=== PATIENT | female | born 1935 | race Caucasian/White ===

== ENCOUNTER 2019-05-12 06:25 | Emergency (ER) | payer MEDICARE, OTHER, MEDICAID, SELFPAY ==
[2019-05-12 06:32] VITALS: BP 140/70; PULSE 98; RESP 24; TEMP 37.1; O2SAT 97; BMI 23.8
--- NOTE | 2019-05-12 06:32 | ED_ITS ---
Documented by User: Jose Juan Bae DO 05/12/19 07:10 HPI - SOB/Dyspnea General: Chief Complaint: Shortness of Breath/Dyspnea Stated Complaint: ASPIRATION Time Seen by Provider: 05/12/19 06:29 History of Present Illness: MD elicited complaint: shortness of breath Pertinent past history: pneumonia Onset (ago): day(s) Context: choking/aspiration Timing: progressively worsening Severity: moderate Exacerbating factors: nothing Relieving factors: nothing Associated symptoms: Reports chest congestion and vomiting Review of Systems General: Reports: ROS unobtainable due to medical condition and ROS unobtainable due to mental status Resp: Reports: chest congestion GI: Reports: vomiting PFSH ED PFSH: Medical History (Updated 05/13/19 @ 14:24 by Herb Kauffman DO) Dementia Lacunar infarction Physical Exam Const: COMMON NORMALS: alert GENERAL APPEARANCE: well developed ORIENTATION/CONSCIOUSNESS: not oriented to person, not oriented to place and not oriented to time HENMT: COMMON NORMALS: normocephalic, external ears normal and external nose normal HEAD & SCALP: normocephalic NOSE: external nose normal and no nasal discharge EXTERNAL EAR: Yes external ears normal Eye: COMMON NORMALS: PERRL, EOMs intact bilaterally and conjunctivae normal EYELID: eyelids normal CONJUNCTIVA: Yes conjunctivae normal PUPIL: Yes PERRL Neck/C-Spine: GENERAL: No tracheal deviation Chest: COMMONS NORMALS: inspection of chest normal CHEST: No tenderness Resp: EFFORT & INSPECTION: Yes tachypneic, No respiratory distress, No retractions, No uses accessory muscles and No tracheal deviation AUSCULTATION: no rhonchi, no wheezes and diminished lung sounds Cardio: COMMON NORMALS: regular rate and regular rhythm RATE: regular rate RHYTHM: regular rhythm HEART SOUNDS: no murmurs PERIPHERAL PULSES: radial pulses present GI: INSPECTION: No abdominal distension AUSCULTATION: No hyperactive bowel sounds and No hypoactive bowel sounds PALPATION: No guarding and No rigid PERCUSSION: no dullness to percussion and no tympanic to percussion Neuro: SENSORIUM/ORIENTATION: Yes alert, No oriented to person, No oriented to place and No oriented to time Skin: COMMON NORMALS: no rashes or lesions noted GENERAL SKIN EXAM: no rashes or lesions noted Course Vital Signs: Vital signs: Vital Signs Temperature 98.8 F 05/12/19 06:32 Pulse Rate 87 05/12/19 08:12 Respiratory Rate 16 05/12/19 08:12 Blood Pressure 132/66 05/12/19 08:12 Pulse Oximetry 95 05/12/19 08:12 MDM - SOB/Dyspnea MDM Narrative: Medical decision making narrative: This patient will be checked out to Dr. Kauffman at shift change. Lab Data: Labs: Lab Results 05/12/19 05/12/19 05/12/19 Range/Units 06:35 06:35 07:19 WBC 15.5 H (4.0-10.0) 10^3/ uL RBC 4.43 (4.1-5.3) 10^6/u L Hgb 12.9 (11.5-15.3) g/dL Hct 41.1 (37.0-47.0) % MCV 92.8 (81-99) fL MCH 29.1 (28.0-34.0) pg MCHC 31.4 (30.0-36.0) g/dL RDW 13.2 (12.1-15.1) % Plt Count 363 (130-400) 10^3/c mm MPV 10.6 H (7.4-10.4) fL Neut % (Auto) 83.6 % Lymph % (Auto) 5.7 % [place] % (Auto) 10.0 % Eos % (Auto) 0.1 % Baso % (Auto) 0.3 % Neut # (Auto) 13.0 H (1.8-7.7) 10^3/u L Lymph # (Auto) 0.9 (0.8-4.8) 10^3/u L [place] # (Auto) 1.6 H (0.2-0.9) 10^3/u L Eos # (Auto) 0.0 (0.0-0.8) 10^3/u L Baso # (Auto) 0.0 (0.0-0.1) 10^3/u L Nucleated RBC % (a uto) 0 % Nucleated RBCs # 0.0 /100WBC Specimen Type Sample Site ABG pH (7.35-7.45) ABG pCO2 (35-45) mmHg ABG pO2 (80.0-100.0) mmH g ABG HCO3 (22-26) mmol/L ABG Base Excess (-2.0-2.0) mmol/ L Otilio Test Hematocrit (37-47) % Hgb O2 Saturation (95-100) % Carboxyhemoglobin (0.4-20.1) %THgb Methemoglobin (0.4-1.5) % Total Hemoglobin (12-16) g/dL O2 Delivery Device FiO2 % Van Driver Helper ID Sodium 138 (136-145) mmol/L Potassium 4.6 (3.5-5.1) mmol/L Chloride 100 (98-107) mmol/L Carbon Dioxide 23 (22-29) mmol/L Anion Gap 19.6 H (5-19) BUN 25 H (8-23) mg/dL Creatinine 1.4 H (0.5-0.9) mg/dL Glucose 132 H (65-115) mg/dL Calculated Osmolal ity 285 (285-295) mOsm/k g Lactate 1.3 (0.5-2.2) mmol/L Calcium 9.2 (8.5-10.5) mg/dL Total Bilirubin 0.7 (0.15-1.2) mg/dL AST 21 (0-32) U/L ALT 12 (0-33) U/L Alkaline Phosphata se 104 (35-105) IU/L Total Protein 6.8 (6.6-8.7) g/dL Albumin 3.8 (3.5-5.2) g/dL Globulin 3.0 (1.3-4.6) g/dL 05/12/19 Range/Units 07:20 WBC (4.0-10.0) 10^3/ uL RBC (4.1-5.3) 10^6/u L Hgb (11.5-15.3) g/dL Hct (37.0-47.0) % MCV (81-99) fL MCH (28.0-34.0) pg MCHC (30.0-36.0) g/dL RDW (12.1-15.1) % Plt Count (130-400) 10^3/c mm MPV (7.4-10.4) fL Neut % (Auto) % Lymph % (Auto) % [place] % (Auto) % Eos % (Auto) % Baso % (Auto) % Neut # (Auto) (1.8-7.7) 10^3/u L Lymph # (Auto) (0.8-4.8) 10^3/u L [place] # (Auto) (0.2-0.9) 10^3/u L Eos # (Auto) (0.0-0.8) 10^3/u L Baso # (Auto) (0.0-0.1) 10^3/u L Nucleated RBC % (a uto) % Nucleated RBCs # /100WBC Specimen Type Arterial Sample Site Radial, left ABG pH 7.46 H (7.35-7.45) ABG pCO2 37.8 (35-45) mmHg ABG pO2 58.7 L (80.0-100.0) mmH g ABG HCO3 26.8 H (22-26) mmol/L ABG Base Excess 2.9 H (-2.0-2.0) mmol/ L Otilio Test Pos Hematocrit 40.3 (37-47) % Hgb O2 Saturation 89.9 L (95-100) % Carboxyhemoglobin 1.0 (0.4-20.1) %THgb Methemoglobin 0.9 (0.4-1.5) % Total Hemoglobin 13.1 (12-16) g/dL O2 Delivery Device Room air FiO2 21.0 % Van Driver Helper ID amh Sodium (136-145) mmol/L Potassium (3.5-5.1) mmol/L Chloride (98-107) mmol/L Carbon Dioxide (22-29) mmol/L Anion Gap (5-19) BUN (8-23) mg/dL Creatinine (0.5-0.9) mg/dL Glucose (65-115) mg/dL Calculated Osmolal ity (285-295) mOsm/k g Lactate (0.5-2.2) mmol/L Calcium (8.5-10.5) mg/dL Total Bilirubin (0.15-1.2) mg/dL AST (0-32) U/L ALT (0-33) U/L Alkaline Phosphata se (35-105) IU/L Total Protein (6.6-8.7) g/dL Albumin (3.5-5.2) g/dL Globulin (1.3-4.6) g/dL Discharge Plan Discharge Patient Disposition: Home, Self-Care Clinical Impression: Vomiting Aspiration pneumonia Qualifiers: Aspiration pneumonia type: due to gastric secretions Condition: Stable Prescriptions: New clindamycin HCl 300 mg capsule 300 mg PO Q6H 7 Days Qty: 28 RF: 0 No Action albuterol sulfate 2.5 mg /3 mL (0.083 %) Solution For Nebulization 2.5 mg INHALATION Q6H RF: 0 Artificial Tears (polyvin alc) 1.4 % Drops 1 drp OPHTHALMIC (EYE) 5XD PRN (Reason: Dry Eye(S)) RF: 0 Zofran 4 mg Tablet 4 mg PO Q6H PRN (Reason: Nausea) RF: 0 Tylenol 8 Hour 650 mg Tablet Extended Release 650 mg PO Q8H RF: 0 Celexa 20 mg Tablet 20 mg PO DAILY RF: 0 Milk of Magnesia 400 mg/5 mL Suspension 30 ml PO DAILY PRN (Reason: Constipation) RF: 0 Dulcolax (bisacodyl) 10 mg Suppository 10 mg IL DAILY PRN (Reason: Constipation) RF: 0 Fleet Enema 19-7 gram/118 mL Enema 118 ml IL DAILY PRN (Reason: Constipation) RF: 0 Risperdal 0.5 mg Tablet 0.5 mg PO DAILY RF: 0 Discharge Orders: Discharge Order (Routine); Ordered 05/12/19 Ordered By: Herb Kauffman Referrals: Pablo Mcdowell DO [Primary Care Provider] - Discharge Diet: Usual diet Discharge Activity: Increase activity as tolerated Activity Restrictions/Additional Instructions: Return if there are further problems. Interventions: ED Discharge Assessment Last Done: 05/12/19 08:12 Discharge Date/Time: 05/12/19 10:43 Sign Out Sign Out Data: Patient Sign Out occurred on 05/12/19 at 07:17. Patient's care was discussed, and care was transferred from to Herb Kauffman DO. Coding Level of Care Code ED Greaser Operator for Chg Fwd Exam Comprehensive Documented by User: Herb Kauffman DO 05/13/19 14:25 HPI - SOB/Dyspnea General: Chief Complaint: Shortness of Breath/Dyspnea Stated Complaint: ASPIRATION Time Seen by Provider: 05/12/19 06:29 History of Present Illness: HPI Narrative: 83-year-old female with moderate dementia she is a resident of a local halfway. She was sent in via EMS after an episode of vomiting at the halfway. I assumed her care at change of shift from Dr. Bae. She had been reported to vomit at the halfway and they are concerned she may have aspirated. Review of her labs shows mildly elevated white count but her chest x-ray is normal she is satting well on room air breathing comfortably. CT of the head was negative chest x-ray was unremarkable. Review of Systems General: Reports: ROS unobtainable due to mental status (Nonverbal at her baseline per halfway report) PFSH ED PFSH: Medical History (Updated 05/13/19 @ 14:24 by Herb Kauffman DO) Dementia Lacunar infarction Physical Exam Eye: COMMON NORMALS: PERRL, EOMs intact bilaterally, conjunctivae normal and no scleral icterus CONJUNCTIVA: Yes conjunctivae normal PUPIL: Yes PERRL Neck/C-Spine: COMMON NORMALS: full ROM, no lymphadenopathy, supple, no meningeal signs and thyroid normal THYROID: thyroid normal and asymmetrical Lymph: LYMPHATIC: no lymphadenopathy noted Resp: COMMON NORMALS: normal respiratory effort, no retractions, no use of accessory muscles and clear to auscultation bilaterally AUSCULTATION: clear to auscultation bilaterally Cardio: COMMON NORMALS: regular rate and regular rhythm RATE: regular rate RHYTHM: regular rhythm HEART SOUNDS: no murmurs GI: COMMON NORMALS: normal to inspection, nondistended, normoactive bowel sounds, soft to palpation and no hepatosplenomegaly PALPATION: Yes soft and Yes no hepatosplenomegaly : COMMON NORMALS: Yes no CVA tenderness BLADDER/KIDNEY EXAM: Yes no CVA tenderness Back/Pelvis: COMMON NORMALS: no CVA tenderness LUMBAR SPINE/LOWER BACK: Yes normal to inspection Extremity: COMMON NORMALS: no clubbing, cyanosis or edema, no calf tenderness and no pedal edema Neuro: MENINGEAL SIGNS: Yes no meningeal signs Skin: COMMON NORMALS: no rashes or lesions noted and skin turgor normal GENERAL SKIN EXAM: no rashes or lesions noted and turgor normal Course ED course: Work-up done in the ER shows her to be stable with no indication for admission. I am concerned though given the history about her developing a aspiration pneumonia so we will start her on the clindamycin. CT of the head shows chronic changes but otherwise nothing new chest x-ray does not show any acute infiltrates. Her white count is slightly elevated and she does show evidence of mild dehydration she was given IV fluids here. At this point her vital signs are stable she is satting normally on room air. We will go ahead and start her on oral clindamycin and discharge her back to the halfway. Vital Signs: Vital signs: Vital Signs Temperature 98.8 F 05/12/19 06:32 Pulse Rate 87 05/12/19 08:12 Respiratory Rate 16 05/12/19 08:12 Blood Pressure 132/66 05/12/19 08:12 Pulse Oximetry 95 05/12/19 08:12 MDM - SOB/Dyspnea Lab Data: Labs: Lab Results 05/12/19 05/12/19 05/12/19 Range/Units 06:35 06:35 07:19 WBC 15.5 H (4.0-10.0) 10^3/ uL RBC 4.43 (4.1-5.3) 10^6/u L Hgb 12.9 (11.5-15.3) g/dL Hct 41.1 (37.0-47.0) % MCV 92.8 (81-99) fL MCH 29.1 (28.0-34.0) pg MCHC 31.4 (30.0-36.0) g/dL RDW 13.2 (12.1-15.1) % Plt Count 363 (130-400) 10^3/c mm MPV 10.6 H (7.4-10.4) fL Neut % (Auto) 83.6 % Lymph % (Auto) 5.7 % [place] % (Auto) 10.0 % Eos % (Auto) 0.1 % Baso % (Auto) 0.3 % Neut # (Auto) 13.0 H (1.8-7.7) 10^3/u L Lymph # (Auto) 0.9 (0.8-4.8) 10^3/u L [place] # (Auto) 1.6 H (0.2-0.9) 10^3/u L Eos # (Auto) 0.0 (0.0-0.8) 10^3/u L Baso # (Auto) 0.0 (0.0-0.1) 10^3/u L Nucleated RBC % (a uto) 0 % Nucleated RBCs # 0.0 /100WBC Specimen Type Sample Site ABG pH (7.35-7.45) ABG pCO2 (35-45) mmHg ABG pO2 (80.0-100.0) mmH g ABG HCO3 (22-26) mmol/L ABG Base Excess (-2.0-2.0) mmol/ L Otilio Test Hematocrit (37-47) % Hgb O2 Saturation (95-100) % Carboxyhemoglobin (0.4-20.1) %THgb Methemoglobin (0.4-1.5) % Total Hemoglobin (12-16) g/dL O2 Delivery Device FiO2 % Van Driver Helper ID Sodium 138 (136-145) mmol/L Potassium 4.6 (3.5-5.1) mmol/L Chloride 100 (98-107) mmol/L Carbon Dioxide 23 (22-29) mmol/L Anion Gap 19.6 H (5-19) BUN 25 H (8-23) mg/dL Creatinine 1.4 H (0.5-0.9) mg/dL Glucose 132 H (65-115) mg/dL Calculated Osmolal ity 285 (285-295) mOsm/k g Lactate 1.3 (0.5-2.2) mmol/L Calcium 9.2 (8.5-10.5) mg/dL Total Bilirubin 0.7 (0.15-1.2) mg/dL AST 21 (0-32) U/L ALT 12 (0-33) U/L Alkaline Phosphata se 104 (35-105) IU/L Total Protein 6.8 (6.6-8.7) g/dL Albumin 3.8 (3.5-5.2) g/dL Globulin 3.0 (1.3-4.6) g/dL 05/12/19 Range/Units 07:20 WBC (4.0-10.0) 10^3/ uL RBC (4.1-5.3) 10^6/u L Hgb (11.5-15.3) g/dL Hct (37.0-47.0) % MCV (81-99) fL MCH (28.0-34.0) pg MCHC (30.0-36.0) g/dL RDW (12.1-15.1) % Plt Count (130-400) 10^3/c mm MPV (7.4-10.4) fL Neut % (Auto) % Lymph % (Auto) % [place] % (Auto) % Eos % (Auto) % Baso % (Auto) % Neut # (Auto) (1.8-7.7) 10^3/u L Lymph # (Auto) (0.8-4.8) 10^3/u L [place] # (Auto) (0.2-0.9) 10^3/u L Eos # (Auto) (0.0-0.8) 10^3/u L Baso # (Auto) (0.0-0.1) 10^3/u L Nucleated RBC % (a uto) % Nucleated RBCs # /100WBC Specimen Type Arterial Sample Site Radial, left ABG pH 7.46 H (7.35-7.45) ABG pCO2 37.8 (35-45) mmHg ABG pO2 58.7 L (80.0-100.0) mmH g ABG HCO3 26.8 H (22-26) mmol/L ABG Base Excess 2.9 H (-2.0-2.0) mmol/ L Otilio Test Pos Hematocrit 40.3 (37-47) % Hgb O2 Saturation 89.9 L (95-100) % Carboxyhemoglobin 1.0 (0.4-20.1) %THgb Methemoglobin 0.9 (0.4-1.5) % Total Hemoglobin 13.1 (12-16) g/dL O2 Delivery Device Room air FiO2 21.0 % Van Driver Helper ID amh Sodium (136-145) mmol/L Potassium (3.5-5.1) mmol/L Chloride (98-107) mmol/L Carbon Dioxide (22-29) mmol/L Anion Gap (5-19) BUN (8-23) mg/dL Creatinine (0.5-0.9) mg/dL Glucose (65-115) mg/dL Calculated Osmolal ity (285-295) mOsm/k g Lactate (0.5-2.2) mmol/L Calcium (8.5-10.5) mg/dL Total Bilirubin (0.15-1.2) mg/dL AST (0-32) U/L ALT (0-33) U/L Alkaline Phosphata se (35-105) IU/L Total Protein (6.6-8.7) g/dL Albumin (3.5-5.2) g/dL Globulin (1.3-4.6) g/dL Discharge Plan Discharge Patient Disposition: Home, Self-Care Clinical Impression: Vomiting Aspiration pneumonia Qualifiers: Aspiration pneumonia type: due to gastric secretions Condition: Stable Prescriptions: New clindamycin HCl 300 mg capsule 300 mg PO Q6H 7 Days Qty: 28 RF: 0 No Action albuterol sulfate 2.5 mg /3 mL (0.083 %) Solution For Nebulization 2.5 mg INHALATION Q6H RF: 0 Artificial Tears (polyvin alc) 1.4 % Drops 1 drp OPHTHALMIC (EYE) 5XD PRN (Reason: Dry Eye(S)) RF: 0 Zofran 4 mg Tablet 4 mg PO Q6H PRN (Reason: Nausea) RF: 0 Tylenol 8 Hour 650 mg Tablet Extended Release 650 mg PO Q8H RF: 0 Celexa 20 mg Tablet 20 mg PO DAILY RF: 0 Milk of Magnesia 400 mg/5 mL Suspension 30 ml PO DAILY PRN (Reason: Constipation) RF: 0 Dulcolax (bisacodyl) 10 mg Suppository 10 mg IL DAILY PRN (Reason: Constipation) RF: 0 Fleet Enema 19-7 gram/118 mL Enema 118 ml IL DAILY PRN (Reason: Constipation) RF: 0 Risperdal 0.5 mg Tablet 0.5 mg PO DAILY RF: 0 Discharge Orders: Discharge Order (Routine); Ordered 05/12/19 Ordered By: Herb Kauffman Referrals: Pablo Mcdowell DO [Primary Care Provider] - Discharge Diet: Usual diet Discharge Activity: Increase activity as tolerated Activity Restrictions/Additional Instructions: Return if there are further problems. Interventions: ED Discharge Assessment Last Done: 05/12/19 08:12 Discharge Date/Time: 05/12/19 10:43 Sign Out Sign Out Data: Patient Sign Out occurred on 05/12/19 at 07:17. Patient's care was discussed, and care was transferred from to Herb Kauffman DO. Coding Level of Care Code ED Greaser Operator for Aashish Fwd Exam Comprehensive
--- NOTE | 2019-05-12 06:46 | XRR_ITS ---
PROCEDURE INFORMATION: Exam: XR Chest, 1 View Exam date and time: 05/12/2019 7:06 AM Age: 83 years old Clinical indication: Shortness of breath; Additional info: SOB TECHNIQUE: Imaging protocol: XR of the chest Views: 1 view. COMPARISON: No relevant prior studies available. FINDINGS: Heart size within normal limits. Mild atelectasis at bilateral lung bases. No airspace consolidation identified. Tiny dense nodule in the right lung apex. Small dense nodule in the left upper lung. These are consistent with granulomata. Pulmonary vasculature within normal limits. No visible pneumothorax or pleural effusion. XR/XR chest 1V portable [id number] IMPRESSION: 1. No radiographic findings of acute cardiopulmonary disease.
--- NOTE | 2019-05-12 06:48 | CTR_ITS ---
PROCEDURE INFORMATION: Exam: CT Head Without Contrast Exam date and time: 05/12/2019 6:49 AM Age: 83 years old Clinical indication: Altered mental status/memory loss TECHNIQUE: Imaging protocol: Computed tomography of the head without contrast. Total DLP: 842.4 mGy-cm Radiation optimization: All CT scans at this facility use at least one of these dose optimization techniques: automated exposure control; mA and/or kV adjustment per patient size (includes targeted exams where dose is matched to clinical indication); or iterative reconstruction. COMPARISON: CT head wo con* [id number] 02/27/2018 5:53 PM FINDINGS: The ventricles and sulci are moderately and diffusely prominent, compatible with global brain volume loss. There is extensive hypodensity of the periventricular white matter. This is nonspecific, but a likely cause is small vessel ischemic disease. There is a 0.8 cm hypodensity near the left caudate head, consistent with a chronic lacunar infarct. No abnormal intra-axial or extra-axial fluid collections are identified. There is no midline shift. No evidence of intracranial hemorrhage. The visualized bones are unremarkable. CT/CT head wo con* [id number] IMPRESSION: 1. No acute intracranial process identified. Radiation Dose CTDIVOL = (mGy): DLP = 842.4 (mGy-cm)
[2019-05-12 07:11] LABS: Basophils % 0.3 %; Eosinophils % 0.1 %; Hematocrit 41.1 % (37.0-47.0); Hemoglobin 12.9 g/dL (11.5-15.3); Lymphocytes # 0.9 10^3/uL (0.8-4.8); Lymphocytes % 5.7 %; Mean Corpuscular HGB Conc 31.4 g/dL (30.0-36.0); Mean Corpuscular Hemoglobin 29.1 pg (28.0-34.0); Mean Corpuscular Volume 92.8 fL (81-99); Mean Platelet Volume 10.6 fL (7.4-10.4); Monocytes # 1.6 10^3/uL (0.2-0.9); Neutrophils % 83.6 %; Nucleated Red Blood Cells % 0 %; Platelet Count 363 10^3/cmm (130-400); Red Blood Count 4.43 10^6/uL (4.1-5.3); Red Cell Distribution Width 13.2 % (12.1-15.1); White Blood Count 15.5 10^3/uL (4.0-10.0)
[2019-05-12 07:21] LABS: Alanine Aminotransferase 12 U/L (0-33); Albumin Level 3.8 g/dL (3.5-5.2); Alkaline Phosphatase 104 IU/L (35-105); Anion Gap 19.6 (5-19); Aspartate Amino Transferase 21 U/L (0-32); Blood Urea Nitrogen 25 mg/dL (8-23); Calcium 9.2 mg/dL (8.5-10.5); Carbon Dioxide 23 mmol/L (22-29); Chloride 100 mmol/L (98-107); Glucose 132 mg/dL (65-115); Osmolality Calculated 285 mOsm/kg (285-295); Potassium 4.6 mmol/L (3.5-5.1); Sodium 138 mmol/L (136-145); Total Bilirubin 0.7 mg/dL (0.15-1.2); Total Protein 6.8 g/dL (6.6-8.7)
[2019-05-12 07:31] LABS: ABG PCO2 37.8 mmHg (35-45); ABG PH Result 7.46 (7.35-7.45); Arterial Blood Gas Hematocrit 40.3 % (37-47); Base Excess ABG 2.9 mmol/L (-2.0-2.0); Blood Gas Allen Test Pos; Blood Gas Operator Identificat amh; Blood Gas Sample Site Radial, left; Blood Gas Sample Type Arterial; HCO3 ABG 26.8 mmol/L (22-26); HGB O2 Sat 89.9 % (95-100); Methemoglobin 0.9 % (0.4-1.5); Oxygen Device ROOM AIR; PO2 ABG 58.7 mmHg (80.0-100.0); Total Hemoglobin 13.1 g/dL (12-16)
[2019-05-12 07:43] LABS: Lactate (Lactic Acid level) 1.3 mmol/L (0.5-2.2)
[2019-05-12] MEDS: ondansetron 2 mg/ML SDV 2 mL 4 MG IVP (07:44)
[2019-05-12 07:46] VITALS: BP 144/58; PULSE 87; RESP 18; O2SAT 99
[2019-05-12 07:47] VITALS: O2SAT 97
[2019-05-12 08:12] VITALS: BP 132/66; PULSE 87; RESP 16; O2SAT 95
== END 2019-05-12 10:43 | disposition home or self-care (01) ==
PROVIDERS: Emergency Medicine; Emergency Provider Family Medicine; Family Provider Internal Medicine; PCP Internal Medicine
DX: J69.0 Pneumonitis due to inhalation of food and vomit (principal); F03.90 Unspecified dementia, unspecified severity, without behavioral disturbance, psychotic disturbance, mood disturbance, and anxiety
CPT/HCPCS: 12345; 36415; 36600; 70450; 71045; 80053; 82805; 83605; 85025; 87040; 96374; 96375; 99282; 99283; J2405

== ENCOUNTER 2019-06-30 06:53 | Inpatient (IN) | payer MEDICARE, OTHER, MEDICAID, SELFPAY ==
[2019-06-30] VITALS (15 sets, daily range): BP systolic 116–171; BP diastolic 50–81; PULSE 74–110; RESP 16–20; TEMP 36.7–37.1; O2SAT 93–100; BMI 24.5
--- NOTE | 2019-06-30 07:03 | XRR_ITS ---
PROCEDURE INFORMATION: Exam: XR Chest, 1 View Exam date and time: 06/30/2019 7:31 AM Age: 83 years old Clinical indication: Other: Edema TECHNIQUE: Imaging protocol: XR of the chest Views: 1 view. COMPARISON: CR XR chest 1V portable [id number] 05/12/2019 6:58 AM FINDINGS: Lungs: Interstitial prominence , chronic granulomatous disease, and left basilar airspace/pleural disease. Heart/Mediastinum: Cardiomegaly. Diaphragm: Asymmetric elevation of the right hemidiaphragm. Bones/joints: Osteopenia and degenerative change. XR/XR chest 1V portable [id number] IMPRESSION: Interstitial prominence , chronic granulomatous disease, and left basilar airspace/pleural disease.
--- NOTE | 2019-06-30 07:04 | ECG_ITS ---
Measurements Intervals [place] Rate: 103 P: 56 MT: 173 QRS: -3 QRSD: 70 T: 21 QT: 331 QTc: 434 SINUS TACHYCARDIA LOW QRS VOLTAGE IN PRECORDIAL LEADS [QRS DEFLECTION < 1.0 mV IN CHEST LEADS] No previous ECG available for comparison Electronically Signed On 06-30-2019 9:31:44 CDT by Keke Ge M.D. [email or web address]
--- NOTE | 2019-06-30 07:04 | W.ED.GENADLT ---
HPI - General Adult General: Chief complaint: General Medical Stated complaint: PEDAL EDEMA; HTN Time Seen by Provider: 06/30/19 06:54 Review of Systems General: Reports: ROS unobtainable due to mental status PFSH ED PFSH: Medical History Dementia Lacunar infarction Social History Smoking and tobacco status: unknown if ever smoked Physical Exam Narrative: EXAM NARRATIVE: senior care reports hypertension, tachycardia, and peripheral edema. Patient is nonverbal and is not able to contribute to history. She does not appear to be in any discomfort or any distress. HENMT: COMMON NORMALS: normocephalic HEAD & SCALP: normocephalic Neck/C-Spine: COMMON NORMALS: no meningeal signs and no JVD Resp: COMMON NORMALS: normal respiratory effort, No retractions, No use of accessory muscles and clear to auscultation bilaterally AUSCULTATION: clear to auscultation bilaterally Cardio: COMMON NORMALS: no JVD and regular rhythm JUGULAR VENOUS DISTENTION: no JVD RHYTHM: regular rhythm HEART SOUNDS: Murmur heart sound present GI: COMMON NORMALS: Normal to inspection, nondistended, normoactive bowel sounds present Extremity: GENERAL: Yes edema Neuro: MENINGEAL SIGNS: Yes no meningeal signs Course Vital Signs: Vital signs: Vital Signs Temperature 98.8 F 06/30/19 06:54 Pulse Rate 77 06/30/19 09:46 Respiratory Rate 16 06/30/19 09:46 Blood Pressure 155/69 06/30/19 09:46 Pulse Oximetry 95 06/30/19 09:46 [facility] - General Adult Lab Data: Labs: Lab Results 06/30/19 06/30/19 06/30/19 Range/Units 07:15 07:15 07:15 WBC 9.0 (4.0-10.0) 10^3/ uL RBC 4.38 (4.1-5.3) 10^6/u L Hgb 12.8 (11.5-15.3) g/dL Hct 41.1 (37.0-47.0) % MCV 93.8 (81-99) fL MCH 29.2 (28.0-34.0) pg MCHC 31.1 (30.0-36.0) g/dL RDW 13.2 (12.1-15.1) % Plt Count 344 (130-400) 10^3/c mm MPV 9.8 (7.4-10.4) fL Neut % (Auto) 82.3 % Lymph % (Auto) 6.7 % [place] % (Auto) 9.6 % Eos % (Auto) 0.8 % Baso % (Auto) 0.3 % Neut # (Auto) 7.4 (1.8-7.7) 10^3/u L Lymph # (Auto) 0.6 L (0.8-4.8) 10^3/u L [place] # (Auto) 0.9 (0.2-0.9) 10^3/u L Eos # (Auto) 0.1 (0.0-0.8) 10^3/u L Baso # (Auto) 0.0 (0.0-0.1) 10^3/u L Nucleated RBC % (a uto) 0 % Nucleated RBCs # 0.0 /100WBC Sodium 145 (136-145) mmol/L Potassium 4.7 (3.5-5.1) mmol/L Chloride 106 (98-107) mmol/L Carbon Dioxide 26 (22-29) mmol/L Anion Gap 17.7 (5-19) BUN 25 H (8-23) mg/dL Creatinine 1.2 H (0.5-0.9) mg/dL Glucose 136 H (65-115) mg/dL Calculated Osmolal ity 299 H (285-295) mOsm/k g Lactate 2.2 (0.5-2.2) mmol/L Calcium 8.8 (8.5-10.5) mg/dL Total Bilirubin 0.4 (0.15-1.2) mg/dL AST 20 (0-32) U/L ALT 15 (0-33) U/L Alkaline Phosphata se 85 (35-105) IU/L Troponin T Baselin e (0-10) ng/mL Troponin T 120 Min [place] (0-10) ng/mL Delta Troponin T (0-10) ABS# NT-Pro-B Natriuret Pep 235 (0-450) pg/mL Total Protein 7.0 (6.6-8.7) g/dL Albumin 4.1 (3.5-5.2) g/dL Globulin 2.9 (1.3-4.6) g/dL Urine Color (Yellow) Urine Appearance (CLEAR) Urine pH (5-7) Ur Specific Gravit y (1.005-1.030) Urine Protein (Negative) Urine Glucose (UA) (Normal) Urine Ketones (Negative) Urine Blood (Negative) Urine Nitrate (Negative) Urine Bilirubin (NEGATIVE) Urine Urobilinogen (Negative) mg/dL Ur Leukocyte Emmanuelle ase (Negative) Urine RBC (0-2) /hpf Urine WBC (0-5) /hpf Ur Squamous Epith Cells (0-5) Urine Bacteria (NONE) Urine Mucus 06/30/19 06/30/19 06/30/19 Range/Units 07:15 07:23 09:14 WBC (4.0-10.0) 10^3/ uL RBC (4.1-5.3) 10^6/u L Hgb (11.5-15.3) g/dL Hct (37.0-47.0) % MCV (81-99) fL MCH (28.0-34.0) pg MCHC (30.0-36.0) g/dL RDW (12.1-15.1) % Plt Count (130-400) 10^3/c mm MPV (7.4-10.4) fL Neut % (Auto) % Lymph % (Auto) % [place] % (Auto) % Eos % (Auto) % Baso % (Auto) % Neut # (Auto) (1.8-7.7) 10^3/u L Lymph # (Auto) (0.8-4.8) 10^3/u L [place] # (Auto) (0.2-0.9) 10^3/u L Eos # (Auto) (0.0-0.8) 10^3/u L Baso # (Auto) (0.0-0.1) 10^3/u L Nucleated RBC % (a uto) % Nucleated RBCs # /100WBC Sodium (136-145) mmol/L Potassium (3.5-5.1) mmol/L Chloride (98-107) mmol/L Carbon Dioxide (22-29) mmol/L Anion Gap (5-19) BUN (8-23) mg/dL Creatinine (0.5-0.9) mg/dL Glucose (65-115) mg/dL Calculated Osmolal ity (285-295) mOsm/k g Lactate (0.5-2.2) mmol/L Calcium (8.5-10.5) mg/dL Total Bilirubin (0.15-1.2) mg/dL AST (0-32) U/L ALT (0-33) U/L Alkaline Phosphata se (35-105) IU/L Troponin T Baselin e 58 H (0-10) ng/mL Troponin T 120 Min [place] 78.46 H (0-10) ng/mL Delta Troponin T 20.46 H* (0-10) ABS# NT-Pro-B Natriuret Pep (0-450) pg/mL Total Protein (6.6-8.7) g/dL Albumin (3.5-5.2) g/dL Globulin (1.3-4.6) g/dL Urine Color Yellow (Yellow) Urine Appearance Sl hazy (CLEAR) Urine pH 5 (5-7) Ur Specific Gravit y 1.020 (1.005-1.030) Urine Protein 1+ H (Negative) Urine Glucose (UA) Norm (Normal) Urine Ketones 1+ H (Negative) Urine Blood 2+ H (Negative) Urine Nitrate Positive H (Negative) Urine Bilirubin 1+ H (NEGATIVE) Urine Urobilinogen Norm (Negative) mg/dL Ur Leukocyte Emmanuelle ase 1+ H (Negative) Urine RBC None (0-2) /hpf Urine WBC 15-25 H (0-5) /hpf Ur Squamous Epith Cells 5-10 H (0-5) Urine Bacteria 3+ H (NONE) Urine Mucus 2+ Discharge Plan Discharge Patient Disposition: Admitted As Inpatient Clinical Impression: Non-ST elevation LA (NSTEMI), Peripheral edema Dementia Qualifiers: Dementia type: unspecified type Dementia behavioral disturbance: without behavioral disturbance Qualified Code(s): F03.90 - Unspecified dementia without behavioral disturbance Condition: Stable Referrals: Pablo Mcdowell DO [Primary Care Provider] - Coding Level of Care Code ED [facility] Fwd Exam Detailed
--- NOTE | 2019-06-30 07:27 | PC.NURSE ---
XR performed at bedside
[2019-06-30 07:31] LABS: Basophils % 0.3 %; Eosinophils # 0.1 10^3/uL (0.0-0.8); Eosinophils % 0.8 %; Hematocrit 41.1 % (37.0-47.0); Hemoglobin 12.8 g/dL (11.5-15.3); Lymphocytes # 0.6 10^3/uL (0.8-4.8); Lymphocytes % 6.7 %; Mean Corpuscular HGB Conc 31.1 g/dL (30.0-36.0); Mean Corpuscular Hemoglobin 29.2 pg (28.0-34.0); Mean Corpuscular Volume 93.8 fL (81-99); Mean Platelet Volume 9.8 fL (7.4-10.4); Monocytes # 0.9 10^3/uL (0.2-0.9); Monocytes % 9.6 %; Neutrophils # 7.4 10^3/uL (1.8-7.7); Neutrophils % 82.3 %; Nucleated Red Blood Cells % 0 %; Platelet Count 344 10^3/cmm (130-400); Red Blood Count 4.38 10^6/uL (4.1-5.3); Red Cell Distribution Width 13.2 % (12.1-15.1)
[2019-06-30 07:45] LABS: Lactate (Lactic Acid level) 2.2 mmol/L (0.5-2.2)
[2019-06-30 07:49] LABS: Troponin(5th) Baseline 58 ng/mL (0-10)
[2019-06-30 07:54] LABS: Blood Urine 2+ (Negative); Glucose Urine UA Norm (Normal); Ketones Urine 1+ (Negative); Nitrate Urine Positive (Negative); Protein Urine 1+ (Negative); Urine Appearance SL Hazy (CLEAR); Urine Color Yellow (Yellow); pH Urine 5 (5-7)
[2019-06-30 07:55] LABS: Add Urine Microscopic? YES; Bilirubin Urine 1+ (NEGATIVE); Leukocyte Esterase Urine 1+ (Negative); Urobilinogen Urine Norm (Negative)
[2019-06-30 07:56] LABS: Add Urine Culture? Yes; Bacteria Urine 3+; Mucus Urine 2+; WBC Urine 15-25 /hpf (0-5)
[2019-06-30 07:56] LABS: Alanine Aminotransferase 15 U/L (0-33); Albumin Level 4.1 g/dL (3.5-5.2); Alkaline Phosphatase 85 IU/L (35-105); Anion Gap 17.7 (5-19); Aspartate Amino Transferase 20 U/L (0-32); Blood Urea Nitrogen 25 mg/dL (8-23); Calcium 8.8 mg/dL (8.5-10.5); Carbon Dioxide 26 mmol/L (22-29); Chloride 106 mmol/L (98-107); Globulin 2.9 g/dL (1.3-4.6); Glucose 136 mg/dL (65-115); NT Pro B Type Natriuretic Pept 235 pg/mL (0-450); Osmolality Calculated 299 mOsm/kg (285-295); Potassium 4.7 mmol/L (3.5-5.1); Sodium 145 mmol/L (136-145); Total Bilirubin 0.4 mg/dL (0.15-1.2)
[2019-06-30] MEDS: cefTRIAXone 1,000 mg SDV 1000 MG IM (08:18)
[2019-06-30] MEDS: water for injection-sterile 10 ML (08:22)
--- NOTE | 2019-06-30 09:04 | ECG_ITS ---
Measurements Intervals [place] Rate: 85 P: 47 WA: 173 QRS: -4 QRSD: 68 T: 10 QT: 358 QTc: 427 SINUS RHYTHM LOW QRS VOLTAGE IN PRECORDIAL LEADS [QRS DEFLECTION < 1.0 mV IN CHEST LEADS] Compared to ECG 06/30/2019 07:18:20 Sinus tachycardia no longer present Electronically Signed On 07-01-2019 20:26:43 CDT by Keke Ge M.D. [id number]
--- NOTE | 2019-06-30 09:16 | PC.NURSE ---
2nd troponin drawn by nursing, 2hr EKG done and given to physician.
[2019-06-30 09:33] LABS: Troponin 5 2HR 78.46 ng/mL (0-10)
--- NOTE | 2019-06-30 09:45 | PC.NURSE ---
Spoke with pt DPOA Marcela Durham regarding pt care. Per Marcela, she requests aggressive treatment. Updated Dr Carreno.
[2019-06-30 09:46] LABS: Troponin 5 2HR Delta 20.46 ABS# (0-10)
--- NOTE | 2019-06-30 10:05 | USR_ITS ---
PROCEDURE INFORMATION: Exam: US Duplex Lower Extremity Veins, Bilateral Exam date and time: 06/30/2019 10:06 AM Age: 83 years old Clinical indication: Edema, localized; Lower extremity, bilateral TECHNIQUE: Imaging protocol: Real-time duplex ultrasound of the extremities with 2-D osei scale, color Doppler flow and spectral waveform analysis with image documentation. Complete exam focused on the bilateral lower extremity veins. COMPARISON: No relevant prior studies available. FINDINGS: Right deep veins: No deep venous thrombosis in the visualized right common femoral, profunda femoris, superficial femoral, popliteal, or posterior tibial veins. Right superficial veins: Saphenofemoral junction is patent without thrombus. Left deep veins: No deep venous thrombosis in the visualized left common femoral, profunda femoris, superficial femoral, popliteal, or posterior tibial veins. Left superficial veins: Saphenofemoral junction is patent without thrombus. Soft tissues: Subcutaneous edema. US/CV venous duplex [facility] [id number] IMPRESSION: No deep venous thrombosis in the visualized bilateral lower extremities.
--- NOTE | 2019-06-30 10:33 | PC.NURSE ---
US performed at bedside
--- NOTE | 2019-06-30 10:47 | PC.NURSE ---
Attempted to call report on pt, was told that nurse would have to call me back.
[2019-06-30 11:29] LABS: Add On to Lab Order(s) Added
--- NOTE | 2019-06-30 11:30 | PM.HP ---
Providers/Chief Complaint Admitting Physician: Pa Noriega MD Primary Care Provider: Pablo Mcdowell DO Chief Complaint: PEDAL EDEMA; HTN History of Present Illness Martha Jane is a 83 year old female who was sent over from the dementia unit at [facility] with abnormal vital signs. According to the nurse who I spoke with over there she was very red in the face this morning, blood pressure was 220/110, and heart rate 140. She is always nonverbal, and nonambulatory. Nurse relates that she had some lower extremity edema as well. She did not appear short of breath. She had not been ill lately with any fever nausea or vomiting. She had had no cough. She had no obvious chest discomfort. She called the physician clinical science liaison who sent her to the emergency department. I was called by the emergency department physician for concerns of her having a non-ST elevation myocardial infarction. They had called the family and they had requested medical treatment. Review of Systems General: Reports: ROS unobtainable due to mental status (Unable to obtain secondary to the patient's dementia) Medications/Allergies Home Medications Medication Instructions Recorded Confirmed Last Taken Type acetaminophen [Tylenol 8 Hour] 650 mg PO BID PRN 05/12/19 06/30/19 Unknown History bisacodyl [Dulcolax (bisacodyl)] 10 mg [place] QPM PRN 05/12/19 06/30/19 Unknown History citalopram [Celexa] 20 mg PO BEDTIME 05/12/19 06/30/19 06/28/19 History magnesium hydroxide [Milk of 30 ml PO DAILY PRN 05/12/19 06/30/19 Unknown History Magnesia] ondansetron HCl [Zofran] 4 mg PO Q4H PRN 05/12/19 06/30/19 Unknown History polyvinyl alcohol [Artificial 1 drp OPHTHALMIC (EYE) TID 05/12/19 06/30/19 Unknown History Tears (polyvin alc)] risperidone [Risperdal] 0.5 mg PO BEDTIME 05/12/19 06/30/19 06/28/19 History Allergies Allergy/AdvReac Type Severity Reaction Status Date / Time No Known Allergies Allergy Verified 05/12/19 06:46 PFSH Acute PFSH: Medical History (Updated 06/30/19 @ 11:43 by Pa Noriega MD) Dementia Nonverbal and nonambulatory Lacunar infarction Social History Smoking and tobacco status: unknown if ever smoked Supplemental [facility] Information: Unable to obtain adequate surgical history family history or social history as patient has significant dementia. Nursing facility records were reviewed as well. Vitals/I&O/Wt Last Vital Signs Temp 98.8 F 06/30/19 06:54 Pulse 85 06/30/19 10:58 Resp 16 06/30/19 10:58 BP 171/77 06/30/19 10:58 Pulse Ox 97 06/30/19 10:58 06/29/19 06/30/19 06/30/19 22:59 06:59 14:59 Intake Total 2.1 / 2.1 Balance 2.1 / 2.1 Weight last 48 hrs Weight 58.967 kg Physical Exam Narrative: EXAM NARRATIVE: General exam demonstrates a nonverbal demented female, who follows me with her eyes HEENT: Pupils equally round. Oropharynx not examined as she could not be prompted to open her mouth Neck is supple no lymphadenopathy or thyromegaly Cardiovascular regular rate and rhythm without murmur Lungs clear Abdomen is soft with positive bowel sounds, no obvious organomegaly is deferred Extremities no cyanosis clubbing. 1+ edema right, trace left Neuro: No focal deficits, dementia noted Skin no rash Data : 06/30/19 07:15 06/30/19 07:15 Micro: Microbiology 06/30/19 08:09 Blood Culture - Preliminary Blood SPECIMEN COLLECTED 06/30/19 07:15 Blood Culture - Preliminary Blood SPECIMEN COLLECTED Other data: Venous duplex negative for DVT EKG demonstrates borderline sinus tachycardia at 103, normal axis, no acute changes Chest x-ray I do not see an infiltrate. Question left basilar airspace disease on official read. Troponin is elevated at 58 on baseline, and 80 at 120 minutes Urinalysis equivocal for infection but significant squamous epithelial cells are present A&P Assessment and plan (1) Non-ST elevation [place] (NSTEMI): Presumed non-ST elevation myocardial infarction. Discussed with family, and they would not want aggressive intervention, only medicine treatment. Will initiate statin, aspirin, beta-juan daniel. Do not plan on any echocardiogram, nuclear stress testing, etc. Serial troponins Status: Acute (2) UTI (urinary tract infection): Initiate Rocephin. Repeat urine. Status: Acute Additional A&P Information Equivocal infiltrate left lung. Check procalcitonin level History of elevated heart rate. On telemetry currently for close monitoring. Edema, venous duplex negative for DVT. BNP normal Elevated blood pressure. Initiate beta-juan daniel Elevated glucose, check hemoglobin A1c Dementia, nonverbal, nonambulatory Allow natural Heparin for DVT prophylaxis Check TSH Attestations Medical Necessity Statement*: Will need less than 2 midnight hospital stay for non-ST elevation myocardial infarction, medically managed Time Spent in Patient Care: Greater than 35 minutes Coding Level of Care Code Acute Technology Analyst for g Fwd Diagnoses Non-ST elevation [place] (NSTEMI) I21.4 UTI (urinary tract infection) N39.0
[2019-06-30 11:51] LABS: Thyroid Stimulating Hormone 1.88 uIU/mL (0.27-4.20)
[2019-06-30 12:11] LABS: Add On to Lab Order(s) Added
[2019-06-30] MEDS: heparin 5,000 unit/mL INJ 1 mL 5000 UNIT SUBCUT (12:54)
[2019-06-30] MEDS: cefTRIAXone 1,000 MG in sodium chloride 0.9% (plus) 50 ML 100 MG IV (12:54)
[2019-06-30 13:05] LABS: Magnesium 2.4 mg/dL (1.7-2.3)
[2019-06-30 13:26] LABS: Bilirubin Urine Neg (NEGATIVE); Blood Urine 2+ (Negative); Glucose Urine UA Norm (Normal); Ketones Urine Negative (Negative); Leukocyte Esterase Urine Trace (Negative); Nitrate Urine Positive (Negative); Protein Urine 1+ (Negative); Urine Appearance Clear (CLEAR); Urobilinogen Urine Norm (Negative); pH Urine 5 (5-7)
[2019-06-30 13:34] LABS: Urine Color Other (Yellow)
[2019-06-30 13:35] LABS: Mucus Urine 2+; Squamous Epithelial Cell Urine 80-100 (0-5); Transitional Epi Cells Urine 15-25 /hpf
[2019-06-30 13:36] LABS: Bacteria Urine 3+; WBC Urine 25-40 /hpf (0-5)
[2019-06-30 13:37] LABS: Add Urine Culture? No
[2019-06-30 14:02] LABS: Troponin 5 6HR 116.2 ng/mL (0-10); Troponin 5 6HR Delta 58.2 ng/L (0-12)
[2019-06-30 15:27] LABS: Estmated Average Glucose 128; Hemoglobin A1C 6.1 % (4.0-6.0)
[2019-06-30] MEDS: metoprolol tartrate 25 mg Tablet PO (18:17)
[2019-06-30] MEDS: atorvastatin 40 mg Tablet 20 MG PO (21:58)
[2019-06-30] MEDS: risperiDONE 1 mg Tablet 0.5 MG PO (21:59)
[2019-07-01] MEDS: heparin 5,000 unit/mL INJ 1 mL 5000 UNIT SUBCUT ×2 (00:37→12:25)
--- NOTE | 2019-07-01 00:43 | PC.NURSE ---
Patient offered drink at this time. Patient refused to open her mouth. Will continue to try upon rounding.
[2019-07-01 04:00] VITALS: BP 134/65; PULSE 75; RESP 24; TEMP 37.1; O2SAT 90
[2019-07-01 06:03] LABS: Basophils # 0.1 10^3/uL (0.0-0.1); Basophils % 0.9 %; Eosinophils # 0.2 10^3/uL (0.0-0.8); Eosinophils % 3.5 %; Hematocrit 35.3 % (37.0-47.0); Lymphocytes # 1.1 10^3/uL (0.8-4.8); Lymphocytes % 19.2 %; Mean Corpuscular HGB Conc 31.2 g/dL (30.0-36.0); Mean Corpuscular Volume 96.2 fL (81-99); Mean Platelet Volume 10.3 fL (7.4-10.4); Monocytes # 0.7 10^3/uL (0.2-0.9); Monocytes % 12.1 %; Neutrophils # 3.5 10^3/uL (1.8-7.7); Neutrophils % 63.9 %; Nucleated Red Blood Cells % 0 %; Platelet Count 262 10^3/cmm (130-400); Red Blood Count 3.67 10^6/uL (4.1-5.3); Red Cell Distribution Width 13.2 % (12.1-15.1); White Blood Count 5.5 10^3/uL (4.0-10.0)
[2019-07-01 06:24] LABS: Anion Gap 15.9 (5-19); Blood Urea Nitrogen 24 mg/dL (8-23); Calcium 9.4 mg/dL (8.5-10.5); Carbon Dioxide 25 mmol/L (22-29); Chloride 104 mmol/L (98-107); Glucose 91 mg/dL (65-115); Osmolality Calculated 288 mOsm/kg (285-295); Potassium 3.9 mmol/L (3.5-5.1); Sodium 141 mmol/L (136-145)
[2019-07-01 07:18] VITALS: BP 128/60; PULSE 63; RESP 18; TEMP 36.8; O2SAT 90
[2019-07-01 08:28] VITALS: PULSE 71; O2SAT 92
[2019-07-01] MEDS: sertraline 50 mg Tablet 25 MG PO (09:13)
[2019-07-01] MEDS: aspirin 325 mg EC Tablet PO (09:13)
--- NOTE | 2019-07-01 09:49 | PC.CHAP ---
Pastoral Care Encounter/Spiritual Assessment Type of Contact [] Declined highway construction inspector visit [] Patient/Family/Request visit [] Outpatient visit [] Follow-up visit [] Physician referral [] Code/Alert [x] Routine visit [] Staff referral [] Actively dying [] Patient sleeping [] Family support [] [] Out of room [] Palliative care [] [] Receiving care in room [] Pre-surgical visit [] Trauma [] Long length of stay [] ICU visit [] Other: Relational/Emotional Strength [] Patient feels connected with others/family/visitors/staff [] Distress [] Loneliness/isolation [] Abandonment Spirituality of Patient [] Person of Beverley [] Attends Scientologist of their Beverley [] Believes in Prayer [] Reads Bible or Zoroastrian materials [] There are Spiritual issues to be addressed Audiovisual Tech Interventions [x] Prayer [] Active listening [] Non-anxious presence [] Spiritual/emotional support [] Crisis/trauma care [] Spiritual counseling [] Bereavement support [] Provided bereavement packet [] Provided Bible/devotional materials [] Provided toy/stuffed animal, coloring book to patient or family member [] Provided Communion [] Anointing/[place] [] Salvation [x] Completed spiritual assessment [] Other: Impact on Illness or Injury [] Angry [] Fearful [] Anxious [] Often cries [] Exhaustion [] Unable to work [] Unable to attend scientology [] Unable to walk/stand [] Unable to read [] Unable to drive [] Unable to eat/drink [] Unable to sleep [] Unable to be with family [] Patient intubated [] Other: Summary Patient awake, communication not possible. Time spent with patient 5 min
[2019-07-01 11:08] VITALS: BP 121/55; PULSE 65; RESP 22; TEMP 37; O2SAT 95
[2019-07-01] MEDS: cefTRIAXone 1,000 MG in sodium chloride 0.9% (plus) 50 ML 100 MG IV (12:25)
[2019-07-01 15:03] VITALS: BP 170/60; PULSE 84; RESP 18; TEMP 37; O2SAT 95
[2019-07-01] MEDS: metoprolol tartrate 25 mg Tablet PO (17:54)
[2019-07-01 20:00] VITALS: BP 169/51; PULSE 72; RESP 18; TEMP 36.8; O2SAT 94
--- NOTE | 2019-07-01 21:11 | P.PN_ITS ---
Subjective Subjective: Interval history: Initially she is alert, but staring off into the distance, and speaking to her appear to be same as hard of hearing, and with delayed response, but eventually does make eye contact, smiles, denies any needs, then trails off to a tangent I could not understand. Denies pain, although overall I am not sure how much she understands from the questions. Perhaps I remind her of someone she had known in the past. Vitals/I&O/Wt Last Vital Signs Temp 98.3 F 07/01/19 20:00 Pulse 72 07/01/19 20:00 Resp 18 07/01/19 20:00 BP 169/51 07/01/19 20:00 Pulse Ox 94 07/01/19 20:00 07/01/19 07/01/19 07/01/19 06:59 14:59 22:59 Intake Total 120 / 120 120 / 240 Balance 120 / 120 120 / 240 Weight last 48 hrs Weight 58.967 kg Physical Exam Const: COMMON NORMALS: no acute distress; negative for patient oriented x3 OTHER: Confused, although does appear awake, makes eye contact, social smile. HENMT: COMMON NORMALS: oropharynx normal Neck/C-Spine: COMMON NORMALS: no JVD Resp: COMMON NORMALS: normal respiratory effort and clear to auscultation b ilaterally AUSCULTATION: clear to auscultation bilaterally Cardio: COMMON NORMALS: no JVD, regular rhythm, S1 normal heart sound present, S2 normal heart sound present and No murmurs present (Cardio) RHYTHM: regular rhythm HEART SOUNDS: S1 normal heart sound present and S2 normal heart sound present GI: COMMON NORMALS: Normal to inspection, nondistended, normoactive bowel sounds present, Soft to palpation and non-tender PALPATION: Yes Soft to palpation Extremity: COMMON NORMALS: no joint enlargement and no pedal edema Neuro: COMMON NORMALS: moves all extremities; negative for patient oriented x3 Skin: COMMON NORMALS: no rashes or lesions noted GENERAL SKIN EXAM: no rashes or lesions noted Data : 07/01/19 04:26 07/01/19 04:26 Micro: Microbiology 06/30/19 07:23 Urine Culture - Preliminary Urine,Clean Catch Gram Negative Rods 06/30/19 08:09 Blood Culture - Preliminary Blood NEGATIVE TO DATE 05/17/20 07:15 Blood Culture - Preliminary Blood NEGATIVE TO DATE A&P Assessment and plan (1) UTI (urinary tract infection): Gram-negative rods growing in urine. She appears to be clinically improving. At this time will follow-up ID and sensitivity. Continue IV antibiotic for now for the complicated UTI with acute encephalopathy on presentation. Status: Acute (2) Non-ST elevation [place] (NSTEMI): Normal aggressive/noninvasive management per family. Today she denies pain, although truly I am not sure whether she even understands the question. Status: Acute Additional A&P Information Equivocal infiltrate left lung. At this time does not show signs of pneumonia. She is not short of breath, she is doing well on room air. Monitor. History of elevated heart rate. Continue monitoring. Edema, venous duplex negative for DVT. BNP normal Elevated blood pressure. Started on beta-juan daniel Elevated glucose, hemoglobin A1c 6.1 Dementia, nonverbal, nonambulatory Allow natural Heparin for DVT prophylaxis Attestations Medical Necessity Statement*: Requiring admission of over 2 midnights for assessment management of complicated UTI. Coding Level of Care Code Acute Occupational Therapy Specialist for Aashish Daigle Diagnoses UTI (urinary tract infection) N39.0 Non-ST elevation [place] (NSTEMI) I21.4
[2019-07-01] MEDS: atorvastatin 40 mg Tablet 20 MG PO (22:28)
[2019-07-01] MEDS: risperiDONE 1 mg Tablet 0.5 MG PO (22:28)
--- NOTE | 2019-07-01 23:22 | PC.NURSE ---
patient in good mood, not crazy when we turned her and cleaned her up but returned to good mood. patient also answered me directly 5 times, when asked a direct question while smiling.
[2019-07-02] VITALS: BP 125/40; PULSE 70; RESP 22; O2SAT 94
[2019-07-02] MEDS: heparin 5,000 unit/mL INJ 1 mL 5000 UNIT SUBCUT ×2 (00:55→11:41)
[2019-07-02 03:34] VITALS: BP 176/84; PULSE 59; RESP 18; TEMP 36.6; O2SAT 96
[2019-07-02 04:46] LABS: Alanine Aminotransferase 13 U/L (0-33); Albumin Level 3.2 g/dL (3.5-5.2); Alkaline Phosphatase 71 IU/L (35-105); Anion Gap 16.3 (5-19); Aspartate Amino Transferase 22 U/L (0-32); Blood Urea Nitrogen 20 mg/dL (8-23); Calcium 9.4 mg/dL (8.5-10.5); Carbon Dioxide 22 mmol/L (22-29); Chloride 104 mmol/L (98-107); Globulin 3.2 g/dL (1.3-4.6); Glucose 98 mg/dL (65-115); Osmolality Calculated 283 mOsm/kg (285-295); Potassium 4.3 mmol/L (3.5-5.1); Sodium 138 mmol/L (136-145); Total Bilirubin 0.4 mg/dL (0.15-1.2); Total Protein 6.4 g/dL (6.6-8.7)
[2019-07-02 07:26] VITALS: BP 126/53; PULSE 68; RESP 18; TEMP 36.6; O2SAT 96
[2019-07-02] MEDS: sertraline 50 mg Tablet 25 MG PO (09:11)
[2019-07-02] MEDS: aspirin 325 mg EC Tablet PO (09:11)
[2019-07-02] MEDS: metoprolol tartrate 25 mg Tablet PO (09:12)
[2019-07-02 10:59] VITALS: BP 145/62; PULSE 61; RESP 18; TEMP 36.3; O2SAT 94
[2019-07-02] MEDS: cefTRIAXone 1,000 MG in sodium chloride 0.9% (plus) 50 ML 100 MG IV (11:41)
[2019-07-02 14:00] VITALS: BP 145/62; PULSE 61; RESP 18; TEMP 36.3; O2SAT 94
--- NOTE | 2019-07-02 21:16 | P.DS_ITS ---
Discharge Providers Date of Admission: 07/01/19 19:32 Date of Discharge: July 02, 2019 Attending Provider at Admission: Pa Noriega MD Attending Provider at Discharge: Anshul Conn Primary Care Provider: Pablo Mcdowell DO Diagnoses at Discharge Discharge Diagnosis (1) UTI (urinary tract infection): Status: Acute (2) Non-ST elevation [place] (NSTEMI): Status: Acute Reason for Visit Reason for Visit: Reason For Visit: PEDAL EDEMA; HTN Hospital Course Hospital Course: 83-year-old lady, residential resident, fairly dependent on outside care due to advanced stages of dementia, bedbound, nonverbal/unable to express her needs at baseline was admitted for assessment management from [facility]note 3] due to abnormal vital signs, with noted hypertension 220/110, heart rate 140 on presentation, facial flushing, without any fever, cough, shortness of breath, nausea or vomiting, but with noted urinary tract infection, and presumed non-STEMI on presentation, and equivocal left lung inf iltrate, although again is noted without clinical signs of pneumonia. No DVT was noted on lower extremity Doppler. Given end stages of dementia, poor quality of life, per record it and then repeated discussion with family aggressive intervention was not considered with regards to any of her medical conditions, however, they were agreeable for treatment with medications, and so she was started on aspirin, beta-juan daniel, statin, as well as treated with Rocephin for urinary tract infection. Urine eventually grew gram-negative rods, today confirmed as pansensitive E. coli. On subsequent reassessment, she has not been able to verbalize review of systems, although occasionally does appear to perhaps attempt to answer some questions, but either answers incomprehensibly, or goes off on some tangent. Does not appear that she actually understands the questions. On extensive discussion with her daughter with regards to her condition, this appears to be baseline. Goals of care were again readdressed, again with repeat discussion with regards to non-STEMI. Daughter appears was not aware of the risks associated, as well as usual care. She did agree that with her mother's current condition, as well as lack of quality of life, pursuing additional assessment and treatment would not necessarily prolong her life, as well as would not contribute to quality of life. With discussion of usual care for non-STEMI, she was agreeable after consideration for now to continue medical treatment, but not pursue additional evaluation or stress testing, or definitely any invasive interventions. She and her family would definitely prefer that comfort was prioritized. As patient has not been appearing in any discomfort at this time, she was in agreement with return to residential for continued care there, and follow-up with PCP. Follow-up with neurology and cardiology were declined. She will complete a course of ciprofloxacin for the urinary tract infection. For now continues on medical therapy. Please continue to readdress goals of care and any continue treatment in accordance. Physical Exam Const: COMMON NORMALS: no acute distress; negative for patient oriented x3 OTHER: Confused, although does appear awake, makes eye contact, social smile. Appears comfortable. HENMT: COMMON NORMALS: oropharynx normal Neck/C-Spine: COMMON NORMALS: no JVD Resp: COMMON NORMALS: normal respiratory effort and clear to auscultation bilaterally AUSCULTATION: clear to auscultation bilaterally Cardio: COMMON NORMALS: no JVD, regular rhythm, S1 normal heart sound present, S2 normal heart sound present and No murmurs present (Cardio) RHYTHM: regular rhythm HEART SOUNDS: S1 normal heart sound present and S2 normal heart sound present GI: COMMON NORMALS: Normal to inspection, nondistended, normoactive bowel sounds present, Soft to palpation and non-tender PALPATION: Yes Soft to palpation Extremity: COMMON NORMALS: no joint enlargement and no pedal edema Neuro: COMMON NORMALS: moves all extremities; negative for patient oriented x3 Skin: COMMON NORMALS: no rashes or lesions noted GENERAL SKIN EXAM: no rashes or lesions noted Discharge Data Data Completed and Pending: Completed Studies During Hospitalization Category Date Time Status XR chest 1V pedro ble [id number] Urgent Exams 06/30/19 07:03 [place] [id number] Urgent Ultrasound 06/30/19 10:05 Completed Pending at discharge Category Date Time Status Blood Culture Sta t Lab 06/30/19 08:09 Results Labs from last 24 hours 07/02/19 03:42 Sodium 138 Potassium 4.3 Chloride 104 Carbon Dioxide 22 Anion Gap 16.3 BUN 20 Creatinine 1.0 H Glucose 98 Calculated Osmolal ity 283 L Calcium 9.4 Total Bilirubin 0.4 AST 22 ALT 13 Alkaline Phosphata se 71 Total Protein 6.4 L Albumin 3.2 L Globulin 3.2 Vitals: Last Vital Signs Temp 97.4 F L 07/02/19 14:00 Pulse 61 07/02/19 14:00 Resp 18 07/02/19 14:00 BP 145/62 07/02/19 14:00 Pulse Ox 94 07/02/19 14:00 Discharge Plan Discharge Patient Disposition: Xfer SNF Condition: Stable Prescriptions: New atorvastatin 40 mg Tablet 20 mg PO BEDTIME Qty: 30 RF: 0 aspirin 325 mg Tablet,Delayed Release (Dr/Ec) 325 mg PO DAILY Qty: 30 RF: 0 sertraline 50 mg Tablet 25 mg PO DAILY Qty: 15 RF: 0 metoprolol tartrate 25 mg Tablet 25 mg PO BID Qty: 60 RF: 0 ciprofloxacin HCl 500 mg tablet 500 mg PO BID Qty: 8 RF: 0 Continued polyvinyl alcohol [Artificial Tears (polyvin alc)] 1.4 % Drops 1 drp OPHTHALMIC (EYE) TID RF: 0 ondansetron HCl [Zofran] 4 mg Tablet 4 mg PO Q4H PRN (Reason: Nausea) RF: 0 acetaminophen [Tylenol 8 Hour] 650 mg Tablet Extended Release 650 mg PO BID PRN (Reason: Pain) RF: 0 magnesium hydroxide [Milk of Magnesia] 400 mg/5 mL Suspension 30 ml PO DAILY PRN (Reason: Constipation) RF: 0 bisacodyl [Dulcolax (bisacodyl)] 10 mg Suppository 10 mg [place] QPM PRN (Reason: Constipation) RF: 0 risperidone [Risperdal] 0.5 mg Tablet 0.5 mg PO BEDTIME RF: 0 Discontinued citalopram [Celexa] 20 mg Tablet 20 mg PO BEDTIME RF: 0 Discharge Orders: Discharge Order (Routine); Ordered 07/02/19 Ordered By: Anshul Conn Referrals: [facility] [Outside] Pablo Mcdowell DO [Primary Care Provider] - 4-7 days Discharge Diet: Cardiac Discharge Activity: Increase activity as tolerated Activity Restrictions/Additional Instructions: Consider continued goals of care discussions and appropriateness of any additional evaluation by neurology and cardiology. At this time according to wishes emphasis is on conservative, non-aggressive interventions and comfort. Discharge Date/Time: 07/02/19 14:00 Discharge Attestations Time Spent in Discharge Care*: greater than 30 min Quality Metrics Clinical Quality Measures During this hospital stay, did patient experience: None Coding Level of Care Code Acute Paper Stripper for Chg Fwd Diagnoses UTI (urinary tract infection) N39.0 Non-ST elevation [place] (NSTEMI) I21.4
== END 2019-07-02 14:00 | disposition skilled nursing facility (03) | DRG 281 ==
LOC: ER 10:02 → CSU 10:15
PROVIDERS: Family Medicine; Admitting Provider Internal Medicine; PCP Internal Medicine; Visit Provider Internal Medicine
DX: I21.4 Non-ST elevation (NSTEMI) myocardial infarction (principal); N39.0 Urinary tract infection, site not specified; F03.90 Unspecified dementia, unspecified severity, without behavioral disturbance, psychotic disturbance, mood disturbance, and anxiety; Z66 Do not resuscitate
CPT/HCPCS: 12345; 36415; 71045; 80048; 80053; 81001; 83036; 83605; 83735; 83880; 84443; 84484; 85025; 87040; 87077; 87086; 87186; 93005; 93970; 96372; 99283; G0378; J0696; J1644